=== PATIENT | female | born 1995 | race Caucasian/White ===

== ENCOUNTER 2017-01-02 11:18 | Inpatient (IN) | payer OTHER ==
[~2017-01-02 11:18] MED LIST: PRENATAL TABLE1 EAC1 PO; TYLENOL325 M1 PO; VITAMIN D1000 UNI1 PO
[2017-01-02 11:35] LABS: BILIRUBIN NEGATIVE (NEGATIVE); BLOOD NEGATIVE Ery/uL (NEGATIVE); CLARITY CLEAR (CLEAR); COLOR YELLOW (YELLOW); GLUCOSE (U) NORMAL (NORMAL); KETONE (U) NEGATIVE (NEGATIVE); LEUKOCYTES TRACE Leu/uL (NEGATIVE); NITRITE NEGATIVE (NEGATIVE); PROTEIN NEGATIVE (NEGATIVE); SPECIFIC GRAVITY 1.015 (1.001-1.030); UROBILINOGEN 0.2 mg/dL (0.2-1.0)
[2017-01-02 12:44] LABS: HCT 34.9 % (37.0-47.0); HGB 12.3 g/dl (12.5-16.0); MCH 31.3 pg (25.0-31.0); MCHC 35.2 g/dL (32.0-36.0); MCV 88.8 fL (78.0-100.0); MPV 10.2 fL (6.0-9.5); RBC 3.93 M/uL (4.20-5.40); RDW 13.4 % (11.5-14.0); WBC 10.9 K/uL (4.0-10.5)
[2017-01-02 20:12] LABS: URINARY WBC RARE
[2017-01-02 20:13] LABS: URINARY RBC RARE
[2017-01-03 09:15] LABS: HCT 33.9 % (37.0-47.0); HGB 11.6 g/dl (12.5-16.0); MCHC 34.2 g/dL (32.0-36.0); MCV 90.6 fL (78.0-100.0); RBC 3.74 M/uL (4.20-5.40); RDW 13.5 % (11.5-14.0)
== END 2017-01-04 19:20 | disposition home or self-care (01) | DRG 774 ==
LOC: FOD 11:18 → FOB 11:19 → FOD 12:04 → FOB 12:05
PROVIDERS: ADMIT Obstetrics & Gynecology
PROC: 10E0XZZ Delivery of Products of Conception, External Approach (ICD-10-PCS; principal; 2017-01-02)
PROC: 10907ZC Drainage of Amniotic Fluid, Therapeutic from Products of Conception, Via Natural or Artificial Opening (ICD-10-PCS; 2017-01-02)
PROC: 4A1HX4Z Monitoring of Products of Conception, Cardiac Electrical Activity, External Approach (ICD-10-PCS; 2017-01-02)
DX: O99.824 Streptococcus B carrier state complicating childbirth (principal); O98.32 Other infections with a predominantly sexual mode of transmission complicating childbirth; Z68.1 Body mass index [BMI] 19.9 or less, adult; Z37.0 Single live birth; O26.13 Low weight gain in pregnancy, third trimester; Z3A.37 37 weeks gestation of pregnancy; R63.6 Underweight; A60.00 Herpesviral infection of urogenital system, unspecified
CPT/HCPCS: 36415; 81001; J2540

== ENCOUNTER 2021-07-20 12:20 | Emergency (ER) | payer OTHER | END 2021-07-20 14:04 | disposition home or self-care (01) | LOC: FER 12:20 | DX: S43.401A Unspecified sprain of right shoulder joint, initial encounter (principal); V49.40XA Driver injured in collision with unspecified motor vehicles in traffic accident, initial encounter; Y92.410 Unspecified street and highway as the place of occurrence of the external cause | CPT/HCPCS: 73030 ==

== ENCOUNTER 2022-06-16 10:14 | Day surgery (SDCO) | payer OTHER ==
[~2022-06-16] VITALS: Ht 162.6 cm; Wt 59.9 kg
[2022-06-16 11:17] LABS: BASOPHIL 0.8 % (0-2); EOSINOPHIL 1.2 % (0-5); HCT 43.7 % (37.0-47.0); HGB 14.8 g/dl (12.5-16.0); LYMPHOCYTE 33.2 % (15-48); MCH 30.2 pg (25.0-31.0); MCHC 33.9 g/dL (32.0-36.0); MCV 89.2 fL (78.0-100.0); MPV 10.1 fL (6.0-9.5); NEUTROPHIL 57.5 % (41-80); NRBC 0; PLT 294 K/uL (150-400); RDW 11.8 % (11.5-14.0); WBC 7.5 K/uL (4.0-10.5)
[2022-06-16 11:22] LABS: ALBUMIN 3.6 g/dL (3.4-5.0); BILIRUBIN - TOTAL 0.2 mg/dL (0.2-1.0); CREATININE 0.6 mg/dL (0.51-0.95); GLOBULIN (CALCULATION) 3.8 g/dL; POTASSIUM 3.4 mmol/L (3.5-5.1); TOTAL PROTEIN 7.4 g/dL (6.4-8.2)
[2022-06-16 11:47] LABS: INFLUENZA A NAA NEGATIVE (NEGATIVE)
[2022-06-16 11:48] LABS: CORONAVIRUS 2019 SARS-COV-2 POSITIVE (NEGATIVE)
[2022-06-16 12:19] LABS: BILIRUBIN NEGATIVE (NEGATIVE); CLARITY HAZY (CLEAR); COLOR YELLOW (YELLOW); GLUCOSE (U) NORMAL (NORMAL); PROTEIN NEGATIVE (NEGATIVE); SPECIFIC GRAVITY <=1.005 (1.001-1.030); pH 7.5 (5.0-9.0)
[2022-06-16 12:20] LABS: BLOOD TRACE-INTACT Ery/uL (NEGATIVE); LEUKOCYTES TRACE Leu/uL (NEGATIVE); NITRITE NEGATIVE (NEGATIVE); UROBILINOGEN 0.2 mg/dL (0.2-1.0)
[2022-06-16 12:26] LABS: AMORPHOUS PHOSPHATE CRYSTALS MODERATE; BACTERIA 1+
[2022-06-16] MEDS ORDERED: LARIN FE 1-201 EACH PO (16:13)
[2022-06-16] MEDS ORDERED: ACETAMINOPHEN500 M1 PO (17:46)
[2022-06-16] MEDS ORDERED: COLACE100 MG PO (17:46)
[2022-06-16] MEDS ORDERED: MOTRIN600 MG PO (17:46)
[2022-06-16] MEDS ORDERED: OXY-IR 5MG5 MG PO (17:46)
== END 2022-06-16 21:31 | disposition home or self-care (01) ==
LOC: FER 10:14 → FMS 12:27
PROVIDERS: Internal Medicine; ADMIT Student in an Organized Health Care Education/Training Program
DX: K35.80 Unspecified acute appendicitis (principal); K38.8 Other specified diseases of appendix; J45.909 Unspecified asthma, uncomplicated; U07.1 COVID-19; Z91.048 Other nonmedicinal substance allergy status
CPT/HCPCS: 36415; 80053; 81001; 83690; 85025; G0378; J1100; J1170; J1885; J2250; J2405; J2543; J2704; J2710; J3010; J7120; Q9967; U0002